=== PATIENT | female | born 1955 | race African-American/Black ===

== ENCOUNTER → 2016-05-07 | Outpatient (CLI) | payer BC, OTHER ==
[2016-04-17 11:00] VITALS: BP 119/55
[~2016-05-07] MED LIST: AMLO10TA4 PO; GADOBUTROL 7.5 MMOL/7.5 ML VIAL IV ONE; IBUP-1060 PO; LISI1TAB7 PO; VENTOLIN HFA18 GM INH
--- NOTE | 2016-05-07 10:15 | RAD ---
PROCEDURE MRI brain without and with contrast. HISTORY Lung cancer, metastasis check TECHNIQUE Sagittal and axial T1, axial T2, axial FLAIR, axial diffusion, axial gradient echo T2, and post-contrast axial and coronal T1 weighted images were acquired of the brain. Contrast: 5 cc Gadavist COMPARISON None FINDINGS There are multiple, approximately 22 foci of abnormal parenchymal enhancement. There is involvement of the left frontal and parietal lobes, bilateral cerebellum, and right temporal, parietal, and frontal lobes. Most of these are associated with primarily peripheral enhancement. Largest lesion of left posterior parietal lobe measures up to 1.5 centimeters. There is variable associated mild T2 and FLAIR hyperintense signal abnormality. There is no midline shift or extra-axial fluid collection. Ventricular size is within normal limits. Cerebral volume is considered within normal limits. There is no restricted diffusion in a pattern suggestive of acute infarct, some mild increased diffusion signal associated with the masses. There is other scattered mild T2 and FLAIR hyperintense signal abnormality of the supratentorial white matter bilaterally not associated with enhancement. There is no significant hemosiderin deposition. There is patchy mild ethmoid air cell mucosal thickening. Mastoid air cells are aerated. There is preservation of the major arterial intracranial flow voids at the skull base. Cerebellar tonsils are normal location. There is mild nonspecific heterogeneity of the marrow signal of the non expanded clivus. There is no significant abnormality of the pineal gland or pituitary gland. IMPRESSION 1. There are findings of intracranial metastatic disease, multiple enhancing parenchymal masses. There is some variable associated mild vasogenic edema. Electronically signed by: Edison Swift MD (May 07, 2016 10:14:01)
== END | disposition home or self-care (01) ==
LOC: MRI 08:00
PROVIDERS: ATTEND Internal Medicine Hematology & Oncology
DX: C34.90 Malignant neoplasm of unspecified part of unspecified bronchus or lung (principal)
CPT/HCPCS: 70553; A9585

== ENCOUNTER → 2016-05-07 | Outpatient (CLI) | payer OTHER ==
[2016-04-17 11:00] VITALS: BP 119/55
[~2016-05-07] MED LIST changes: -GADOBUTROL 7.5 MMOL/7.5 ML VIAL IV ONE; +IOHEXOL 240 MG/ML 50ML VIAL. PO ONE; +IOHEXOL 300 MG/ML 75 ML VIAL IV ONE
--- NOTE | 2016-05-07 12:42 | RAD ---
Indication lung cancer. Headaches. Bone pain. Axial images through the abdomen and pelvis were obtained. Both IV and oral contrast were administered. No prior imaging targeted to the abdomen and pelvis is available. Note is made of a prior examination of the chest, incorporated in the upper abdomen, without contrast, one month ago. A significant acute finding at either lung base is not seen. There is some scarring in the right middle lobe and chronic cystic parenchymal changes at the right lung base. These findings are unchanged relative to the study 04/05/2016. There are multiple hepatic mass lesions which are not characteristic of simple cysts. The largest is in the left lobe of the liver. The lesions (by virtue of IV contrast) are much more conspicuous than on the CT examination previously referenced. The lesions which are seen on today's examination however do appear larger than on the study one month earlier and are most compatible with progressive hepatic metastatic disease. The spleen appears unremarkable. No definite pancreatic abnormality is seen. The adrenal glands appear unremarkable as do the kidneys apart from bilateral renal calculi.. Significant central or retroperitoneal adenopathy is not seen. There are occasional diverticula seen associated with the large bowel. Active inflammation is not seen. Acute finding in the pelvis is not apparent. The urinary bladder is distended. Apart from degenerative changes in the visualized spine a bony abnormality is not seen. IMPRESSION: Multiple hepatic masses, larger than on the study one month ago, most consistent with progressive hepatic metastatic disease PQRS Compliance Statement: One or more of the following individualized dose reduction techniques were utilized for this examination: 1. Automated exposure control 2. Adjustment of the mA and/or kV according to patient size 3. Use of iterative reconstruction technique
--- NOTE | 2016-05-07 14:24 | RAD ---
Indication lung cancer. Staging. A 26 mCi of technetium labeled MDP was administered. Whole body static images were obtained. No prior bone scan imaging is available. There is increased activity in the mid thoracic spine compatible with degenerative uptake. Marked degenerative changes are seen in this area on the CT examination 04/05/2016. Similarly there is significantly increased uptake in the lower lumbar spine also compatible with degenerative uptake. Substantial degenerative changes are seen in this area on the CT examination May 07, 2016. Abnormal uptake to suggest bony metastatic disease is not seen. Normal activity is seen in both kidneys and the bladder. IMPRESSION: Negative study for skeletal metastatic disease. Degenerative uptake noted in the thoracic and lumbar spine
== END | disposition home or self-care (01) ==
LOC: MRI 09:00
PROVIDERS: ATTEND Internal Medicine Hematology & Oncology
DX: C34.91 Malignant neoplasm of unspecified part of right bronchus or lung (principal); C78.7 Secondary malignant neoplasm of liver and intrahepatic bile duct; N20.0 Calculus of kidney; K57.30 Diverticulosis of large intestine without perforation or abscess without bleeding; R16.0 Hepatomegaly, not elsewhere classified; M47.896 Other spondylosis, lumbar region; M47.894 Other spondylosis, thoracic region; N32.89 Other specified disorders of bladder
CPT/HCPCS: 74177; 78306; 96374; A9503